=== PATIENT | male | born 1940 | race African-American/Black ===

== ENCOUNTER 2018-10-05 12:01 | Inpatient (IN) ==
[2018-10-05] MEDS ORDERED: ASPIRIN 325 MG TABLET PO STA (12:43)
[2018-10-05 13:44] LABS: Basophils % 0.4 % (0.0-0.8); Eosinophils # 0.1 10*3/uL (0.0-0.87); Hematocrit 29.2 VOL% (42.0-52.0); Hemoglobin 8.8 GM/DL (14.0-18.0); Immature Granulocytes % 0.5 %; Immature Granulocytes Absolute 0.05 #; Lymphocytes % 9.8 % (21.2-54.2); Mean Corpuscular HGB Conc 30.1 GM/DL (32-36); Mean Corpuscular Hemoglobin 27 PG (27-34); Mean Corpuscular Volume 89.6 FL (87-102); Mean Platelet Volume 9.6 FL (9.6-12.0); Monocytes # 0.8 10*3/uL (0.11-0.8); Neutrophils # 8.4 10*3/uL (1.4-7.4); Neutrophils % 80.3 % (38.7-73.9); Platelet Count 354 T/CUMM (130-400); Red Blood Count 3.26 MC/CUMM (3.8-5.5); Red Cell Distribution Width 15.9 % (9.3-17.3); White Blood Count 10.5 T/CUMM (4-12)
[2018-10-05 13:53] LABS: INR 1.5; Partial Thromboplastin Time 31.8 SECS (0-40)
[2018-10-05 14:08] LABS: Alanine Aminotransferase 11 U/L (16-61); Albumin 2.6 G/DL (3.4-5.0); Alkaline Phosphatase 69 U/L (45-117); Aspartate Amino Transferase 35 U/L (0-37); Bilirubin,Total < 0.39 MG/DL (0.2-1.0); Blood Urea Nitrogen 20 MG/DL (7-18); Calcium 9.2 MG/DL (8.5-10.1); Glucose 112 MG/DL (74-106); Osmolality,Calculated 280.5 MOS/KG (273-304); Potassium 4.4 MMOL/L (3.5-5.1); Sodium 139 MMOL/L (136-145); Total Protein 7.1 G/DL (6.4-8.3)
[2018-10-05] MEDS ORDERED: MELOXICAM 7.5 MG TABLET PO PRN (15:15)
[2018-10-05] MEDS ORDERED: LACTULOSE 20 GM/30 ML UDCUP PO PRN (16:14)
[2018-10-05] MEDS ORDERED: ONDANSETRON 4 MG/2 ML VIAL IV PRN (16:14)
[2018-10-05] MEDS ORDERED: MORPHINE 4 MG/1 ML VIAL IV PRN (16:14)
[2018-10-05] MEDS: SODIUM CHLORIDE 0.9% 1,000 ML IV SCH (18:51)
[2018-10-05] MEDS: MEROPENEM 1,000 MG in SODIUM CHLORIDE 0.9% 100 ML IV SCH (18:52)
[2018-10-05] MEDS: PANTOPRAZOLE 40 MG TABLET PO SCH (18:52)
[2018-10-05] MEDS: DOCUSATE SODIUM 100 MG CAPSULE PO SCH (21:26)
[2018-10-06] MEDS: MEROPENEM 1,000 MG in SODIUM CHLORIDE 0.9% 100 ML IV SCH ×2 (00:21→07:58)
[2018-10-06 07:37] LABS: Basophils % 0.4 % (0.0-0.8); Eosinophils # 0.1 10*3/uL (0.0-0.87); Eosinophils % 1.4 % (0.00-10.9); Hematocrit 27.8 VOL% (42.0-52.0); Hemoglobin 8.4 GM/DL (14.0-18.0); Immature Granulocytes % 0.5 %; Immature Granulocytes Absolute 0.05 #; Lymphocytes # 1.2 10*3/uL (1.4-4.0); Lymphocytes % 13.2 % (21.2-54.2); Mean Corpuscular HGB Conc 30.2 GM/DL (32-36); Mean Corpuscular Hemoglobin 27 PG (27-34); Mean Corpuscular Volume 89.4 FL (87-102); Mean Platelet Volume 9.3 FL (9.6-12.0); Monocytes # 0.9 10*3/uL (0.11-0.8); Monocytes % 10.2 % (1.7-12.7); Neutrophils # 6.8 10*3/uL (1.4-7.4); Neutrophils % 74.3 % (38.7-73.9); Platelet Count 299 T/CUMM (130-400); Red Blood Count 3.11 MC/CUMM (3.8-5.5); Red Cell Distribution Width 16.1 % (9.3-17.3); White Blood Count 9.1 T/CUMM (4-12)
[2018-10-06] MEDS: RIVAROXABAN 20 MG TABLET PO SCH (07:57)
[2018-10-06] MEDS: TAMSULOSIN 0.4 MG CAPSULE PO SCH (08:05)
[2018-10-06] MEDS: CITALOPRAM 20 MG TABLET PO SCH (08:05)
[2018-10-06] MEDS: DOCUSATE SODIUM 100 MG CAPSULE PO SCH ×2 (08:05→22:30)
[2018-10-06] MEDS: FERROUS SULFATE 325 MG TABLET PO SCH (08:05)
[2018-10-06] MEDS: BISACODYL 5 MG TABLET PO SCH (08:05)
[2018-10-06 08:11] LABS: Albumin 2.5 G/DL (3.4-5.0); Bilirubin,Total 0.5 MG/DL (0.2-1.0); Calcium 8.4 MG/DL (8.5-10.1); Total Protein 6.6 G/DL (6.4-8.3)
[2018-10-06 08:12] LABS: Osmolality,Calculated 283.3 MOS/KG (273-304); Potassium 4.1 MMOL/L (3.5-5.1)
[2018-10-06] MEDS ORDERED: LORATADINE 10 MG TABLET PO SCH (09:00)
[2018-10-06 10:11] LABS: Apearance,Urine Slightly Hazy (Clear); Bacteria,Urine Occasional /HPF (Few); Bilirubin,Urine Negative (Negative); Blood, Urine Negative (Negative); Glucose,Urine (UA) Negative (Negative); Ketones,Urine 5 mg/dL (Negative); Mucus,Urine Occasional /LPF (Occasional); Nitrite,Urine Negative (Negative); Protein,Urine Negative; RBC,Urine 1 /HPF (0-4); Squamous Epithelial Cell,Urine Occasional /HPF (0-10); Urine Color Yellow (Yellow); Urine Specific Gravity 1.026 (1.001-1.035); Urine Urobilinogen < 2.0 EU/DL (0.2-1.0); WBC,Urine 1 /HPF (0-6)
[2018-10-06] MEDS: SODIUM CHLORIDE 0.9% 1,000 ML IV SCH ×2 (10:22→22:11)
[2018-10-06] MEDS: amLODIPine 2.5 MG TABLET PO SCH (15:20)
[2018-10-06] MEDS: PANTOPRAZOLE 40 MG TABLET PO SCH (22:30)
[2018-10-07 06:29] LABS: Basophils % 0.5 % (0.0-0.8); Eosinophils # 0.2 10*3/uL (0.0-0.87); Eosinophils % 2.7 % (0.00-10.9); Hematocrit 28.2 VOL% (42.0-52.0); Hemoglobin 8.4 GM/DL (14.0-18.0); Immature Granulocytes % 0.4 %; Immature Granulocytes Absolute 0.03 #; Lymphocytes # 1.3 10*3/uL (1.4-4.0); Lymphocytes % 16.2 % (21.2-54.2); Mean Corpuscular HGB Conc 29.8 GM/DL (32-36); Mean Corpuscular Hemoglobin 27 PG (27-34); Mean Corpuscular Volume 90.4 FL (87-102); Monocytes # 0.8 10*3/uL (0.11-0.8); Monocytes % 9.6 % (1.7-12.7); Neutrophils # 5.5 10*3/uL (1.4-7.4); Neutrophils % 70.6 % (38.7-73.9); Platelet Count 305 T/CUMM (130-400); Red Blood Count 3.12 MC/CUMM (3.8-5.5); Red Cell Distribution Width 16.2 % (9.3-17.3); White Blood Count 7.8 T/CUMM (4-12)
[2018-10-07 06:48] LABS: Albumin 2.5 G/DL (3.4-5.0); Bilirubin,Total 0.6 MG/DL (0.2-1.0); Calcium 8.7 MG/DL (8.5-10.1); Osmolality,Calculated 282.1 MOS/KG (273-304); Potassium 4.1 MMOL/L (3.5-5.1); Total Protein 6.6 G/DL (6.4-8.3)
[2018-10-07] MEDS: TAMSULOSIN 0.4 MG CAPSULE PO SCH (08:54)
[2018-10-07] MEDS: CITALOPRAM 20 MG TABLET PO SCH (08:54)
[2018-10-07] MEDS: BISACODYL 5 MG TABLET PO SCH (08:54)
[2018-10-07] MEDS: amLODIPine 2.5 MG TABLET PO SCH (08:54)
[2018-10-07] MEDS: RIVAROXABAN 20 MG TABLET PO SCH (08:54)
[2018-10-07] MEDS: FERROUS SULFATE 325 MG TABLET PO SCH (08:54)
[2018-10-07] MEDS: DOCUSATE SODIUM 100 MG CAPSULE PO SCH (08:54)
[2018-10-07 11:59] VITALS: BP 146/92
[2018-10-07] MEDS: SODIUM CHLORIDE 0.9% 1,000 ML IV SCH (12:49)
== END 2018-10-07 14:15 | disposition home health service (06) | DRG 313 ==
LOC: EDSEX → EDUNIT# → N.ED 12:01 → N.EDINP 16:12 → SUATTDRO 16:12 → N.2E 17:04
PROVIDERS: ADMIT Internal Medicine; ATTEND Internal Medicine

== ENCOUNTER 2018-10-10 16:04 | Inpatient (IN) ==
[2018-10-10] MEDS ORDERED: PANTOPRAZOLE INJ 80 MG in SODIUM CHLORIDE 0.9% 100 ML IV STA (16:48)
[2018-10-10] MEDS ORDERED: SODIUM CHLORIDE 0.9% 1,000 ML IV STA (16:48)
[2018-10-10] MEDS ORDERED: PANTOPRAZOLE 40 MG VIAL IV ONE (16:58)
[2018-10-10 17:21] LABS: Basophils % 0.8 % (0.0-0.8); Eosinophils # 0.1 10*3/uL (0.0-0.87); Eosinophils % 1.4 % (0.00-10.9); Hematocrit 35.7 VOL% (42.0-52.0); Hemoglobin 10.9 GM/DL (14.0-18.0); Immature Granulocytes % 0.4 %; Immature Granulocytes Absolute 0.02 #; Lymphocytes # 0.8 10*3/uL (1.4-4.0); Lymphocytes % 15.6 % (21.2-54.2); Mean Corpuscular HGB Conc 30.5 GM/DL (32-36); Mean Corpuscular Hemoglobin 27 PG (27-34); Mean Corpuscular Volume 88.1 FL (87-102); Mean Platelet Volume 10.1 FL (9.6-12.0); Monocytes # 0.4 10*3/uL (0.11-0.8); Monocytes % 8.5 % (1.7-12.7); Neutrophils # 3.7 10*3/uL (1.4-7.4); Neutrophils % 73.3 % (38.7-73.9); Platelet Count 230 T/CUMM (130-400); Red Blood Count 4.05 MC/CUMM (3.8-5.5); Red Cell Distribution Width 15.6 % (9.3-17.3); White Blood Count 5.1 T/CUMM (4-12)
[2018-10-10 17:30] LABS: INR 1.2; PT Patient Result 12.7 SECS; Partial Thromboplastin Time 29.8 SECS (0-40)
[2018-10-10 17:57] LABS: Albumin 2.8 G/DL (3.4-5.0); Bilirubin,Total 0.6 MG/DL (0.2-1.0); Calcium 8.9 MG/DL (8.5-10.1); Osmolality,Calculated 272.8 MOS/KG (273-304); Potassium 3.7 MMOL/L (3.5-5.1); Total Protein 7.3 G/DL (6.4-8.3)
[2018-10-10] MEDS ORDERED: DOCUSATE SODIUM 100 MG CAPSULE PO SCH (21:00)
[2018-10-11] MEDS: ONDANSETRON 4 MG/2 ML VIAL IV PRN ×3 (00:22→16:06)
[2018-10-11] MEDS ORDERED: SODIUM CHLORIDE 0.9% 1,000 ML IV PRN ×2 (01:58→09:32)
[2018-10-11 05:44] LABS: Basophils % 0.5 % (0.0-0.8); Eosinophils # 0.2 10*3/uL (0.0-0.87); Hematocrit 27.1 VOL% (42.0-52.0); Hemoglobin 8.4 GM/DL (14.0-18.0); Immature Granulocytes % 0.4 %; Immature Granulocytes Absolute 0.02 #; Lymphocytes # 1.1 10*3/uL (1.4-4.0); Mean Corpuscular Hemoglobin 27 PG (27-34); Mean Corpuscular Volume 88.3 FL (87-102); Mean Platelet Volume 9.9 FL (9.6-12.0); Monocytes # 0.6 10*3/uL (0.11-0.8); Monocytes % 9.8 % (1.7-12.7); Neutrophils # 3.7 10*3/uL (1.4-7.4); Neutrophils % 66.3 % (38.7-73.9); Platelet Count 243 T/CUMM (130-400); Red Blood Count 3.07 MC/CUMM (3.8-5.5); Red Cell Distribution Width 15.9 % (9.3-17.3); White Blood Count 5.6 T/CUMM (4-12)
[2018-10-11] MEDS: PANTOPRAZOLE 40 MG VIAL IV SCH ×2 (08:15→22:30)
[2018-10-11] MEDS ORDERED: PANTOPRAZOLE 40 MG TABLET PO SCH (09:00)
[2018-10-12] MEDS ORDERED: BISACODYL 5 MG TABLET PO PRN (10:12)
[2018-10-12] MEDS ORDERED: DOCUSATE SODIUM 100 MG CAPSULE PO SCH (10:30)
[2018-10-12] MEDS: PANTOPRAZOLE 40 MG VIAL IV SCH (10:32)
[2018-10-12] MEDS ORDERED: TUBERCULIN SKIN TEST 0.1 ML SYRINGE INTRADERM ONE (10:49)
[2018-10-12] MEDS: POLYETHYLENE GLYCOL POWDER 17 GM PACK PO SCH (14:07)
[2018-10-12] MEDS: ONDANSETRON 4 MG/2 ML VIAL IV PRN (14:12)
[2018-10-12] MEDS: PANTOPRAZOLE 40 MG TABLET PO SCH (20:40)
[2018-10-12] MEDS ORDERED: POLYETHYLENE GLYCOL POWDER 17 GM PACK PO SCH (21:00)
[2018-10-12] MEDS: MORPHINE 4 MG/1 ML VIAL IV PRN (22:24)
[2018-10-13] MEDS: POLYETHYLENE GLYCOL POWDER 17 GM PACK PO SCH ×5 (02:29→20:42)
[2018-10-13 06:14] LABS: Calcium 8.6 MG/DL (8.5-10.1); Osmolality,Calculated 273.7 MOS/KG (273-304); Potassium 3.6 MMOL/L (3.5-5.1)
[2018-10-13 08:09] LABS: Basophils % 0.6 % (0.0-0.8); Eosinophils # 0.1 10*3/uL (0.0-0.87); Eosinophils % 2.9 % (0.00-10.9); Hematocrit 26.7 VOL% (42.0-52.0); Hemoglobin 8.6 GM/DL (14.0-18.0); Immature Granulocytes % 0.2 %; Immature Granulocytes Absolute 0.01 #; Lymphocytes # 1.2 10*3/uL (1.4-4.0); Lymphocytes % 23.9 % (21.2-54.2); Mean Corpuscular HGB Conc 32.2 GM/DL (32-36); Mean Corpuscular Hemoglobin 28 PG (27-34); Mean Corpuscular Volume 86.7 FL (87-102); Mean Platelet Volume 10.2 FL (9.6-12.0); Monocytes # 0.5 10*3/uL (0.11-0.8); Monocytes % 9.5 % (1.7-12.7); Neutrophils # 3.1 10*3/uL (1.4-7.4); Neutrophils % 62.9 % (38.7-73.9); Platelet Count 201 T/CUMM (130-400); Red Blood Count 3.08 MC/CUMM (3.8-5.5); Red Cell Distribution Width 15.5 % (9.3-17.3); White Blood Count 4.9 T/CUMM (4-12)
[2018-10-13] MEDS: PANTOPRAZOLE 40 MG TABLET PO SCH ×2 (08:19→18:32)
[2018-10-13] MEDS: ONDANSETRON 4 MG/2 ML VIAL IV PRN (15:14)
[2018-10-14 04:55] LABS: Basophils % 0.9 % (0.0-0.8); Eosinophils # 0.2 10*3/uL (0.0-0.87); Eosinophils % 4.5 % (0.00-10.9); Hematocrit 26.7 VOL% (42.0-52.0); Hemoglobin 8.2 GM/DL (14.0-18.0); Immature Granulocytes % 0.2 %; Immature Granulocytes Absolute 0.01 #; Lymphocytes # 1.2 10*3/uL (1.4-4.0); Lymphocytes % 25.1 % (21.2-54.2); Mean Corpuscular HGB Conc 30.7 GM/DL (32-36); Mean Corpuscular Hemoglobin 27 PG (27-34); Mean Corpuscular Volume 88.7 FL (87-102); Mean Platelet Volume 10.4 FL (9.6-12.0); Monocytes # 0.5 10*3/uL (0.11-0.8); Monocytes % 9.6 % (1.7-12.7); Neutrophils # 2.8 10*3/uL (1.4-7.4); Neutrophils % 59.7 % (38.7-73.9); Platelet Count 203 T/CUMM (130-400); Red Blood Count 3.01 MC/CUMM (3.8-5.5); Red Cell Distribution Width 15.6 % (9.3-17.3); White Blood Count 4.7 T/CUMM (4-12)
[2018-10-14] MEDS: ONDANSETRON 4 MG/2 ML VIAL IV PRN ×3 (06:26→23:36)
[2018-10-14] MEDS: PANTOPRAZOLE 40 MG TABLET PO SCH ×2 (10:23→18:44)
[2018-10-14] MEDS: POLYETHYLENE GLYCOL POWDER 17 GM PACK PO SCH ×3 (10:24→20:38)
[2018-10-14] MEDS: MORPHINE 4 MG/1 ML VIAL IV PRN (14:49)
[2018-10-15] MEDS: MORPHINE 4 MG/1 ML VIAL IV PRN ×2 (02:09→18:07)
[2018-10-15] MEDS: PANTOPRAZOLE 40 MG TABLET PO SCH ×2 (07:01→18:02)
[2018-10-15] MEDS: POLYETHYLENE GLYCOL POWDER 17 GM PACK PO SCH ×3 (08:10→20:25)
[2018-10-15] MEDS: ACETAMINOPHEN 325 MG TABLET PO PRN (17:08)
[2018-10-16] MEDS: ONDANSETRON 4 MG/2 ML VIAL IV PRN ×2 (01:28→12:58)
[2018-10-16] MEDS: MORPHINE 4 MG/1 ML VIAL IV PRN ×2 (03:57→20:45)
[2018-10-16] MEDS: PANTOPRAZOLE 40 MG TABLET PO SCH ×2 (09:07→18:32)
[2018-10-16] MEDS: POLYETHYLENE GLYCOL POWDER 17 GM PACK PO SCH ×3 (09:07→20:46)
[2018-10-16] MEDS ORDERED: DOCUSATE SODIUM 100 MG CAPSULE PO PRN (13:30)
[2018-10-16] MEDS ORDERED: ALBUTEROL 2.5 MG/3 ML NEB RESP TX PRN (13:30)
[2018-10-16] MEDS ORDERED: PANTOPRAZOLE 40 MG TABLET PO SCH (16:30)
[2018-10-16] MEDS: ERYTHROMYCIN 0.5% OPHT OINT 3.5 GM TUBE BOTH EYES SCH ×2 (17:34→20:45)
[2018-10-16] MEDS: predniSONE 5 MG TABLET PO SCH (20:45)
[2018-10-16] MEDS: TAMSULOSIN 0.4 MG CAPSULE PO SCH (20:45)
[2018-10-16] MEDS: ACETAMINOPHEN 325 MG TABLET PO PRN (23:52)
[2018-10-17] MEDS ORDERED: POLYETHYLENE GLYCOL POWDER 255 GM BOTTLE PO SCH (09:00)
[2018-10-17] MEDS: POLYETHYLENE GLYCOL POWDER 17 GM PACK PO SCH ×4 (10:37→20:23)
[2018-10-17] MEDS: predniSONE 5 MG TABLET PO SCH ×2 (10:38→20:24)
[2018-10-17] MEDS: CITALOPRAM 20 MG TABLET PO SCH (10:38)
[2018-10-17] MEDS: ERYTHROMYCIN 0.5% OPHT OINT 3.5 GM TUBE BOTH EYES SCH ×4 (10:38→20:24)
[2018-10-17] MEDS: FLUTICASONE 50 MCG NASAL SPRAY 16 GM BOTTLE BOTH NARES SCH (10:38)
[2018-10-17] MEDS: PANTOPRAZOLE 40 MG TABLET PO SCH ×2 (10:39→23:56)
[2018-10-17] MEDS: LORATADINE 10 MG TABLET PO SCH (10:39)
[2018-10-17] MEDS: amLODIPine 2.5 MG TABLET PO SCH (10:39)
[2018-10-17] MEDS: MORPHINE 4 MG/1 ML VIAL IV PRN ×2 (15:59→23:56)
[2018-10-17] MEDS ORDERED: HYDROmorphone 2 MG/1 ML VIAL IV ONE (17:39)
[2018-10-17] MEDS: ONDANSETRON 4 MG/2 ML VIAL IV PRN (20:24)
[2018-10-17] MEDS: TAMSULOSIN 0.4 MG CAPSULE PO SCH (20:24)
[2018-10-18] MEDS: FLUTICASONE 50 MCG NASAL SPRAY 16 GM BOTTLE BOTH NARES SCH (08:44)
[2018-10-18] MEDS: amLODIPine 2.5 MG TABLET PO SCH (08:44)
[2018-10-18] MEDS: CITALOPRAM 20 MG TABLET PO SCH (08:44)
[2018-10-18] MEDS: predniSONE 5 MG TABLET PO SCH ×2 (08:45→21:38)
[2018-10-18] MEDS: PANTOPRAZOLE 40 MG TABLET PO SCH ×2 (08:45→18:21)
[2018-10-18] MEDS: POLYETHYLENE GLYCOL POWDER 17 GM PACK PO SCH ×3 (08:45→21:38)
[2018-10-18] MEDS: ERYTHROMYCIN 0.5% OPHT OINT 3.5 GM TUBE BOTH EYES SCH ×4 (08:46→21:38)
[2018-10-18] MEDS: LORATADINE 10 MG TABLET PO SCH (08:46)
[2018-10-18] MEDS: MORPHINE 4 MG/1 ML VIAL IV PRN (09:03)
[2018-10-18] MEDS: ONDANSETRON 4 MG/2 ML VIAL IV PRN (09:03)
[2018-10-18] MEDS: TAMSULOSIN 0.4 MG CAPSULE PO SCH (21:38)
[2018-10-19] MEDS: ACETAMINOPHEN 325 MG TABLET PO PRN (00:54)
[2018-10-19] MEDS: PANTOPRAZOLE 40 MG TABLET PO SCH ×2 (06:36→18:03)
[2018-10-19] MEDS: ERYTHROMYCIN 0.5% OPHT OINT 3.5 GM TUBE BOTH EYES SCH ×4 (08:53→21:42)
[2018-10-19] MEDS: FLUTICASONE 50 MCG NASAL SPRAY 16 GM BOTTLE BOTH NARES SCH (08:53)
[2018-10-19] MEDS: CITALOPRAM 20 MG TABLET PO SCH (08:53)
[2018-10-19] MEDS: POLYETHYLENE GLYCOL POWDER 17 GM PACK PO SCH ×3 (08:53→21:42)
[2018-10-19] MEDS: predniSONE 5 MG TABLET PO SCH ×2 (08:53→21:40)
[2018-10-19] MEDS: amLODIPine 2.5 MG TABLET PO SCH (08:53)
[2018-10-19] MEDS: LORATADINE 10 MG TABLET PO SCH (08:53)
[2018-10-19] MEDS ORDERED: POLYETHYLENE GLYCOL POWDER 17 GM PACK PO SCH (09:00)
[2018-10-19] MEDS: MORPHINE 4 MG/1 ML VIAL IV PRN ×2 (12:05→21:39)
[2018-10-19] MEDS: TAMSULOSIN 0.4 MG CAPSULE PO SCH (21:40)
[2018-10-20] MEDS: PANTOPRAZOLE 40 MG TABLET PO SCH (06:31)
[2018-10-20] MEDS: amLODIPine 2.5 MG TABLET PO SCH (08:58)
[2018-10-20] MEDS: CITALOPRAM 20 MG TABLET PO SCH (08:58)
[2018-10-20] MEDS: POLYETHYLENE GLYCOL POWDER 17 GM PACK PO SCH (08:58)
[2018-10-20] MEDS: ERYTHROMYCIN 0.5% OPHT OINT 3.5 GM TUBE BOTH EYES SCH (08:58)
[2018-10-20] MEDS: LORATADINE 10 MG TABLET PO SCH (08:58)
[2018-10-20] MEDS: predniSONE 5 MG TABLET PO SCH (08:58)
[2018-10-20] MEDS: FLUTICASONE 50 MCG NASAL SPRAY 16 GM BOTTLE BOTH NARES SCH (09:00)
[2018-10-20 11:54] VITALS: BP 142/97
[2018-10-22] MEDS ORDERED: ERGOCALCIFEROL 50,000 UNIT CAPSULE PO SCH (09:00)
== END 2018-10-20 13:59 | DRG 378 ==
LOC: EDUNIT# → EDBD → N.ED 16:04 → N.EDINP 18:14 → SUATTDRO 18:14 → N.2E 19:42
PROVIDERS: ADMIT Hospitalist; ATTEND Internal Medicine

== ENCOUNTER 2018-12-11 01:13 | Inpatient (IN) ==
[2018-12-11] MEDS ORDERED: SODIUM CHLORIDE 0.9% 1,000 ML IV STA (02:17)
[2018-12-11 02:34] LABS: Basophils % 0.5 % (0.0-0.8); Eosinophils % 0.6 % (0.00-10.9); Hematocrit 29.5 VOL% (42.0-52.0); Hemoglobin 9.1 GM/DL (14.0-18.0); Immature Granulocytes % 1.1 %; Immature Granulocytes Absolute 0.07 #; Lymphocytes # 0.9 10*3/uL (1.4-4.0); Lymphocytes % 13.7 % (21.2-54.2); Mean Corpuscular HGB Conc 30.8 GM/DL (32-36); Mean Corpuscular Hemoglobin 28 PG (27-34); Mean Corpuscular Volume 90.8 FL (87-102); Mean Platelet Volume 10.6 FL (9.6-12.0); Monocytes # 0.6 10*3/uL (0.11-0.8); Monocytes % 8.8 % (1.7-12.7); Neutrophils # 4.8 10*3/uL (1.4-7.4); Neutrophils % 75.3 % (38.7-73.9); Platelet Count 173 T/CUMM (130-400); Red Blood Count 3.25 MC/CUMM (3.8-5.5); Red Cell Distribution Width 17.4 % (9.3-17.3); White Blood Count 6.3 T/CUMM (4-12)
[2018-12-11 02:53] LABS: Alanine Aminotransferase 11 U/L (16-61); Albumin 2.8 G/DL (3.4-5.0); Alkaline Phosphatase 61 U/L (45-117); Aspartate Amino Transferase 42 U/L (0-37); Bilirubin,Total < 0.39 MG/DL (0.2-1.0); Blood Urea Nitrogen 18 MG/DL (7-18); Glucose 110 MG/DL (74-106); Osmolality,Calculated 279.5 MOS/KG (273-304); Sodium 139 MMOL/L (136-145); Total Protein 6.7 G/DL (6.4-8.3)
[2018-12-11] MEDS ORDERED: PANTOPRAZOLE 40 MG VIAL IV ONE (02:58)
[2018-12-11] MEDS ORDERED: ONDANSETRON 4 MG/2 ML VIAL ONE (02:58)
[2018-12-11] MEDS ORDERED: PANTOPRAZOLE 40 MG VIAL IV STA (03:13)
[2018-12-11] MEDS ORDERED: ONDANSETRON 4 MG/2 ML VIAL IV STA (03:13)
[2018-12-11] MEDS ORDERED: NICOTINE 21 MG/24 HR PATCH TRANSDERM PRN (04:36)
[2018-12-11] MEDS ORDERED: ACETAMINOPHEN 325 MG TABLET PO PRN (04:36)
[2018-12-11] MEDS ORDERED: ONDANSETRON 4 MG/2 ML VIAL IV PRN (04:36)
[2018-12-11] MEDS ORDERED: MORPHINE 4 MG/1 ML VIAL IV PRN (04:36)
[2018-12-11] MEDS ORDERED: GLUCAGON 1 MG VIAL IM PRN (04:36)
[2018-12-11] MEDS ORDERED: ALBUTEROL 2.5 MG/3 ML NEB RESP TX PRN (04:36)
[2018-12-11] MEDS ORDERED: DEXTROSE 50% 25 GM/50 ML SYRINGE IV PRN (04:36)
[2018-12-11] MEDS: SODIUM CHLORIDE 0.9% 1,000 ML IV SCH ×2 (05:30→20:53)
[2018-12-11] MEDS: ALBUTEROL/IPRATROPIUM 3 ML NEB RESP TX SCH ×5 (07:24→23:54)
[2018-12-11] MEDS: INSULIN REGULAR 100 UNIT/ML SUBCUT SCH ×4 (08:36→20:52)
[2018-12-11 08:52] LABS: Basophils % 0.5 % (0.0-0.8); Eosinophils % 0.6 % (0.00-10.9); Hematocrit 30.7 VOL% (42.0-52.0); Hemoglobin 9.3 GM/DL (14.0-18.0); Immature Granulocytes % 0.5 %; Immature Granulocytes Absolute 0.03 #; Lymphocytes # 1.5 10*3/uL (1.4-4.0); Lymphocytes % 23.1 % (21.2-54.2); Mean Corpuscular HGB Conc 30.3 GM/DL (32-36); Mean Corpuscular Hemoglobin 28 PG (27-34); Mean Corpuscular Volume 92.7 FL (87-102); Mean Platelet Volume 10.4 FL (9.6-12.0); Monocytes # 0.6 10*3/uL (0.11-0.8); Monocytes % 9.4 % (1.7-12.7); Neutrophils # 4.1 10*3/uL (1.4-7.4); Neutrophils % 65.9 % (38.7-73.9); Platelet Count 158 T/CUMM (130-400); Red Blood Count 3.31 MC/CUMM (3.8-5.5); Red Cell Distribution Width 17.3 % (9.3-17.3); White Blood Count 6.3 T/CUMM (4-12)
[2018-12-11] MEDS: PANTOPRAZOLE 40 MG VIAL IV SCH ×2 (09:32→20:49)
[2018-12-11] MEDS: BISACODYL 5 MG TABLET PO SCH ×2 (13:17→20:50)
[2018-12-12] MEDS: BISACODYL 5 MG TABLET PO SCH (03:34)
[2018-12-12] MEDS: ALBUTEROL/IPRATROPIUM 3 ML NEB RESP TX SCH ×6 (04:10→23:10)
[2018-12-12 04:49] LABS: Basophils % 0.6 % (0.0-0.8); Eosinophils # 0.1 10*3/uL (0.0-0.87); Eosinophils % 0.8 % (0.00-10.9); Hematocrit 27.8 VOL% (42.0-52.0); Hemoglobin 8.4 GM/DL (14.0-18.0); Immature Granulocytes % 1.9 %; Immature Granulocytes Absolute 0.12 #; Lymphocytes % 16.6 % (21.2-54.2); Mean Corpuscular HGB Conc 30.2 GM/DL (32-36); Mean Corpuscular Hemoglobin 28 PG (27-34); Mean Corpuscular Volume 92.1 FL (87-102); Mean Platelet Volume 10.6 FL (9.6-12.0); Monocytes # 0.6 10*3/uL (0.11-0.8); Monocytes % 9.7 % (1.7-12.7); Neutrophils # 4.4 10*3/uL (1.4-7.4); Neutrophils % 70.4 % (38.7-73.9); Platelet Count 164 T/CUMM (130-400); Red Blood Count 3.02 MC/CUMM (3.8-5.5); Red Cell Distribution Width 17.6 % (9.3-17.3); White Blood Count 6.2 T/CUMM (4-12)
[2018-12-12 05:14] LABS: Calcium 7.6 MG/DL (8.5-10.1); Osmolality,Calculated 281.1 MOS/KG (273-304); Potassium 3.6 MMOL/L (3.5-5.1)
[2018-12-12 05:57] LABS: Eosinophils 1 % (0-10); Hypochromasia 1+; Lymphocytes 14 % (20-55); Microcytosis 1+; Ovalocytes Few; Segmented Neutrophils 77 % (50-85); Total Cells Counted 100
[2018-12-12 05:58] LABS: Platelet Estimate Adequate
[2018-12-12] MEDS: INSULIN REGULAR 100 UNIT/ML SUBCUT SCH ×4 (08:35→22:05)
[2018-12-12] MEDS: PANTOPRAZOLE 40 MG VIAL IV SCH ×2 (11:12→22:04)
[2018-12-12] MEDS: SODIUM CHLORIDE 0.9% 1,000 ML IV SCH ×3 (11:12→22:17)
[2018-12-12] MEDS ORDERED: POLYETHYLENE GLYCOL POWDER 255 GM BOTTLE PO ONE (18:00)
[2018-12-12] MEDS ORDERED: MAGNESIUM CITRATE 300 ML BOTTLE PO ONE (21:00)
[2018-12-13] MEDS: ALBUTEROL/IPRATROPIUM 3 ML NEB RESP TX SCH ×5 (02:50→19:58)
[2018-12-13 05:16] LABS: Basophils % 0.3 % (0.0-0.8); Eosinophils # 0.1 10*3/uL (0.0-0.87); Eosinophils % 0.9 % (0.00-10.9); Hematocrit 30.3 VOL% (42.0-52.0); Hemoglobin 9.2 GM/DL (14.0-18.0); Immature Granulocytes % 0.6 %; Immature Granulocytes Absolute 0.04 #; Lymphocytes # 0.9 10*3/uL (1.4-4.0); Lymphocytes % 12.6 % (21.2-54.2); Mean Corpuscular HGB Conc 30.4 GM/DL (32-36); Mean Corpuscular Hemoglobin 28 PG (27-34); Mean Corpuscular Volume 90.4 FL (87-102); Mean Platelet Volume 9.8 FL (9.6-12.0); Monocytes # 0.6 10*3/uL (0.11-0.8); Monocytes % 8.8 % (1.7-12.7); Neutrophils # 5.2 10*3/uL (1.4-7.4); Neutrophils % 76.8 % (38.7-73.9); Platelet Count 178 T/CUMM (130-400); Red Blood Count 3.35 MC/CUMM (3.8-5.5); Red Cell Distribution Width 17.7 % (9.3-17.3); White Blood Count 6.8 T/CUMM (4-12)
[2018-12-13] MEDS: PANTOPRAZOLE 40 MG VIAL IV SCH ×2 (08:06→21:09)
[2018-12-13] MEDS ORDERED: ONDANSETRON 4 MG/2 ML VIAL ONE (10:00)
[2018-12-13] MEDS ORDERED: PROPOFOL 200 MG/20 ML VIAL IV ONE (10:00)
[2018-12-13] MEDS ORDERED: LIDOCAINE 2% 5 ML VIAL ONE (10:00)
[2018-12-13] MEDS: INSULIN REGULAR 100 UNIT/ML SUBCUT SCH ×3 (10:19→21:11)
[2018-12-14 02:45] LABS: Basophils % 0.4 % (0.0-0.8); Eosinophils # 0.1 10*3/uL (0.0-0.87); Eosinophils % 1.1 % (0.00-10.9); Hematocrit 28.6 VOL% (42.0-52.0); Hemoglobin 8.7 GM/DL (14.0-18.0); Immature Granulocytes % 0.4 %; Immature Granulocytes Absolute 0.03 #; Lymphocytes % 11.6 % (21.2-54.2); Mean Corpuscular HGB Conc 30.4 GM/DL (32-36); Mean Corpuscular Hemoglobin 28 PG (27-34); Mean Corpuscular Volume 90.8 FL (87-102); Monocytes # 0.7 10*3/uL (0.11-0.8); Monocytes % 7.8 % (1.7-12.7); Neutrophils # 6.6 10*3/uL (1.4-7.4); Neutrophils % 78.7 % (38.7-73.9); Platelet Count 160 T/CUMM (130-400); Red Blood Count 3.15 MC/CUMM (3.8-5.5); White Blood Count 8.4 T/CUMM (4-12)
[2018-12-14] MEDS: SODIUM CHLORIDE 0.9% 1,000 ML IV SCH ×4 (03:08→14:38)
[2018-12-14] MEDS: ALBUTEROL/IPRATROPIUM 3 ML NEB RESP TX SCH ×7 (04:11→23:06)
[2018-12-14] MEDS: INSULIN REGULAR 100 UNIT/ML SUBCUT SCH ×4 (07:55→21:56)
[2018-12-14] MEDS: PANTOPRAZOLE 40 MG TABLET PO SCH ×2 (09:03→21:56)
[2018-12-14] MEDS ORDERED: SIMETHICONE CHEW 80 MG TABLET PO PRN (14:17)
[2018-12-14] MEDS ORDERED: ONDANSETRON 4 MG TABLET PO PRN (14:17)
[2018-12-14] MEDS ORDERED: DOCUSATE SODIUM 100 MG CAPSULE PO PRN (14:17)
[2018-12-14] MEDS ORDERED: ALBUTEROL 2.5 MG/3 ML NEB RESP TX PRN (15:00)
[2018-12-14] MEDS: FERROUS SULFATE 325 MG TABLET PO SCH (15:23)
[2018-12-14] MEDS: amLODIPine 2.5 MG TABLET PO SCH (15:23)
[2018-12-14] MEDS: LORATADINE 10 MG TABLET PO SCH (15:24)
[2018-12-14] MEDS: ERYTHROMYCIN 0.5% OPHT OINT 3.5 GM TUBE BOTH EYES SCH ×2 (17:38→21:56)
[2018-12-14] MEDS ORDERED: TAMSULOSIN 0.4 MG CAPSULE PO SCH (21:00)
[2018-12-14] MEDS: predniSONE 5 MG TABLET PO SCH (21:56)
[2018-12-14] MEDS: POLYETHYLENE GLYCOL POWDER 17 GM PACK PO SCH (21:56)
[2018-12-15] MEDS: SODIUM CHLORIDE 0.9% 1,000 ML IV SCH ×2 (03:35→03:36)
[2018-12-15] MEDS: ALBUTEROL/IPRATROPIUM 3 ML NEB RESP TX SCH ×3 (03:53→10:57)
[2018-12-15 07:32] VITALS: BP 140/94
[2018-12-15] MEDS ORDERED: LINACLOTIDE 145 MCG CAPSULE PO SCH (08:00)
[2018-12-15] MEDS: INSULIN REGULAR 100 UNIT/ML SUBCUT SCH (08:23)
[2018-12-15] MEDS: FERROUS SULFATE 325 MG TABLET PO SCH (08:56)
[2018-12-15] MEDS: LORATADINE 10 MG TABLET PO SCH (08:57)
[2018-12-15] MEDS: predniSONE 5 MG TABLET PO SCH (08:57)
[2018-12-15] MEDS: PANTOPRAZOLE 40 MG TABLET PO SCH (08:57)
[2018-12-15] MEDS: amLODIPine 2.5 MG TABLET PO SCH (08:57)
[2018-12-15] MEDS ORDERED: FLUTICASONE 50 MCG NASAL SPRAY 16 GM BOTTLE BOTH NARES SCH (09:00)
[2018-12-15] MEDS ORDERED: CITALOPRAM 20 MG TABLET PO SCH (09:00)
[2018-12-15] MEDS: ERYTHROMYCIN 0.5% OPHT OINT 3.5 GM TUBE BOTH EYES SCH (09:08)
[2018-12-15] MEDS: POLYETHYLENE GLYCOL POWDER 17 GM PACK PO SCH (09:11)
[2018-12-17] MEDS ORDERED: ERGOCALCIFEROL 50,000 UNIT CAPSULE PO SCH (09:00)
== END 2018-12-15 12:22 | DRG 375 ==
LOC: EDUNIT# → EDBD → N.ED 01:13 → N.EDINP 01:13 → SUATTDRO 04:36 → N.2E 05:11
PROVIDERS: ADMIT Internal Medicine; ATTEND Internal Medicine
PROC: COLONBX (2018-12-13 13:20)

== ENCOUNTER 2019-03-22 17:40 | Inpatient (IN) ==
[2019-03-22] MEDS ORDERED: LOPERAMIDE 2 MG CAPSULE PO STA (18:04)
[2019-03-22] MEDS ORDERED: ONDANSETRON 4 MG/2 ML VIAL IV STA (18:04)
[2019-03-22] MEDS ORDERED: METOCLOPRAMIDE 10 MG/2 ML VIAL IV STA (18:04)
[2019-03-22] MEDS ORDERED: DICYCLOMINE 20 MG/2 ML AMP IM ONE (18:04)
[2019-03-22] MEDS ORDERED: SODIUM CHLORIDE 0.9% 1,000 ML IV STA ×2 (18:04→20:53)
[2019-03-22] MEDS ORDERED: metroNIDAZOLE INJ 500 MG in PREMIX 1 EACH IV STA (18:08)
[2019-03-22 18:32] LABS: Hematocrit 31.7 VOL% (42.0-52.0); Hemoglobin 10.3 GM/DL (14.0-18.0); Immature Granulocytes % 0.6 %; Immature Granulocytes Absolute 0.04 #; Lymphocytes # 0.3 10*3/uL (1.4-4.0); Lymphocytes % 4.8 % (21.2-54.2); Mean Corpuscular HGB Conc 32.5 GM/DL (32-36); Mean Corpuscular Volume 88.5 FL (87-102); Mean Platelet Volume 10.4 FL (9.6-12.0); Monocytes % 5.9 % (1.7-12.7); Neutrophils % 88.7 % (38.7-73.9); Platelet Count 178 T/CUMM (130-400); Red Blood Count 3.58 MC/CUMM (3.8-5.5); Red Cell Distribution Width 16.9 % (9.3-17.3); White Blood Count 6.6 T/CUMM (4-12)
[2019-03-22 18:51] LABS: Albumin 2.8 G/DL (3.4-5.0); Bilirubin,Total 1.9 MG/DL (0.2-1.0); Calcium 9.3 MG/DL (8.5-10.1); Osmolality,Calculated 284.4 MOS/KG (273-304); Total Protein 6.8 G/DL (6.4-8.3)
[2019-03-22 18:53] LABS: Troponin I < 0.015 NG/ML (0.00-0.045)
[2019-03-22 19:02] LABS: Anisocytosis Slight; Elliptocytes Few; Lymphocytes 4 % (20-55); Microcytosis Slight; Platelet Estimate Normal; Segmented Neutrophils 95 % (50-85); Total Cells Counted 100
[2019-03-22 20:31] LABS: Apearance,Urine CLEAR (Clear); Bacteria,Urine Occasional /HPF (Few); Blood, Urine Negative (Negative); Glucose,Urine (UA) Negative (Negative); Hyaline Casts,Urine 4 /LPF (0-3); Ketones,Urine Negative (Negative); Mucus,Urine Many /LPF (Occasional); Nitrite,Urine Negative (Negative); Protein,Urine 30 MG/DL; RBC,Urine 5 /HPF (0-4); Squamous Epithelial Cell,Urine Occasional /HPF (0-10); Urine Color Amber (Yellow); Urine Specific Gravity 1.026 (1.001-1.035); WBC,Urine 8 /HPF (0-6)
[2019-03-22 20:32] LABS: Bilirubin,Urine Small mg/dL (Negative)
[2019-03-22] MEDS ORDERED: POLYETHYLENE GLYCOL POWDER 17 GM PACK PO PRN (23:18)
[2019-03-22] MEDS ORDERED: GLUCAGON 1 MG VIAL IM PRN (23:18)
[2019-03-22] MEDS ORDERED: DEXTROSE 50% 25 GM/50 ML VIAL IV PRN (23:18)
[2019-03-22] MEDS: SODIUM CHLORIDE 0.9% 1,000 ML IV SCH (23:44)
[2019-03-22] MEDS: INSULIN REGULAR 100 UNIT/ML SUBCUT SCH (23:45)
[2019-03-23] MEDS: predniSONE 5 MG TABLET PO SCH ×3 (00:12→22:02)
[2019-03-23] MEDS: TAMSULOSIN 0.4 MG CAPSULE PO SCH ×2 (00:12→22:02)
[2019-03-23] MEDS: LEVOFLOXACIN INJ 500 MG in PREMIX 1 EACH IV SCH ×2 (00:12→22:01)
[2019-03-23] MEDS: ONDANSETRON 4 MG/2 ML VIAL IV PRN (00:17)
[2019-03-23] MEDS: ACETAMINOPHEN 325 MG TABLET PO PRN (01:08)
[2019-03-23 06:38] LABS: Basophils % 0.2 % (0.0-0.8); Eosinophils % 0.2 % (0.00-10.9); Hematocrit 30.2 VOL% (42.0-52.0); Hemoglobin 9.9 GM/DL (14.0-18.0); Immature Granulocytes % 0.7 %; Immature Granulocytes Absolute 0.04 #; Lymphocytes # 0.4 10*3/uL (1.4-4.0); Lymphocytes % 6.4 % (21.2-54.2); Mean Corpuscular HGB Conc 32.8 GM/DL (32-36); Mean Corpuscular Volume 87.3 FL (87-102); Mean Platelet Volume 10.4 FL (9.6-12.0); Monocytes % 8.1 % (1.7-12.7); Neutrophils % 84.4 % (38.7-73.9); Platelet Count 157 T/CUMM (130-400); Red Blood Count 3.46 MC/CUMM (3.8-5.5); Red Cell Distribution Width 16.8 % (9.3-17.3); White Blood Count 5.8 T/CUMM (4-12)
[2019-03-23 07:04] LABS: Albumin 2.7 G/DL (3.4-5.0); Bilirubin,Total 3.3 MG/DL (0.2-1.0); Osmolality,Calculated 278.5 MOS/KG (273-304); Total Protein 6.7 G/DL (6.4-8.3)
[2019-03-23 07:27] LABS: Albumin 2.8 G/DL (3.4-5.0); Bilirubin,Direct 2.44 MG/DL (0.0-0.20); Bilirubin,Indirect 0.6 MG/DL (0.0-1.0); Total Protein 6.7 G/DL (6.4-8.3)
[2019-03-23] MEDS ORDERED: MORPHINE 4 MG/1 ML VIAL IV PRN (09:04)
[2019-03-23] MEDS: FERROUS GLUCONATE 324 MG TABLET PO SCH ×2 (09:49→22:02)
[2019-03-23] MEDS: MORPHINE ER 15 MG TABLET PO SCH (09:49)
[2019-03-23] MEDS: CITALOPRAM 20 MG TABLET PO SCH (09:49)
[2019-03-23] MEDS: PANTOPRAZOLE 40 MG TABLET PO SCH (09:49)
[2019-03-23] MEDS: amLODIPine 2.5 MG TABLET PO SCH (09:50)
[2019-03-23] MEDS: FLUTICASONE 50 MCG NASAL SPRAY 16 GM BOTTLE BOTH NARES SCH (09:50)
[2019-03-23] MEDS: INSULIN REGULAR 100 UNIT/ML SUBCUT SCH ×4 (12:03→22:00)
[2019-03-23] MEDS: SODIUM CHLORIDE 0.9% 1,000 ML IV SCH (14:19)
[2019-03-23] MEDS: ALBUTEROL/IPRATROPIUM 3 ML NEB RESP TX PRN ×2 (14:35→19:32)
[2019-03-23] MEDS ORDERED: HYDROmorphone 2 MG/1 ML VIAL IV PRN (19:36)
[2019-03-24] MEDS: SODIUM CHLORIDE 0.9% 1,000 ML IV SCH ×3 (00:14→23:24)
[2019-03-24 05:14] LABS: Basophils % 0.2 % (0.0-0.8); Eosinophils % 0.2 % (0.00-10.9); Hemoglobin 9.6 GM/DL (14.0-18.0); Immature Granulocytes % 0.6 %; Immature Granulocytes Absolute 0.03 #; Lymphocytes # 0.3 10*3/uL (1.4-4.0); Lymphocytes % 6.7 % (21.2-54.2); Mean Corpuscular Volume 89.8 FL (87-102); Mean Platelet Volume 10.7 FL (9.6-12.0); Monocytes % 8.5 % (1.7-12.7); Neutrophils % 83.8 % (38.7-73.9); Platelet Count 153 T/CUMM (130-400); Red Blood Count 3.34 MC/CUMM (3.8-5.5); Red Cell Distribution Width 17.4 % (9.3-17.3)
[2019-03-24 05:32] LABS: Calcium 8.8 MG/DL (8.5-10.1); Osmolality,Calculated 281.1 MOS/KG (273-304)
[2019-03-24 05:37] LABS: Albumin 2.4 G/DL (3.4-5.0); Bilirubin,Direct 3.42 MG/DL (0.0-0.20); Bilirubin,Indirect 0.8 MG/DL (0.0-1.0); Bilirubin,Total 4.2 MG/DL (0.2-1.0); Total Protein 6.2 G/DL (6.4-8.3)
[2019-03-24] MEDS ORDERED: MIDAZOLAM 2 MG/2 ML VIAL ONE (08:08)
[2019-03-24] MEDS ORDERED: fentaNYL 100 MCG/2 ML VIAL ONE (08:08)
[2019-03-24] MEDS ORDERED: INDOMETHACIN SUPP 50 MG SUPP RECTAL ONE (08:38)
[2019-03-24] MEDS ORDERED: ONDANSETRON 4 MG/2 ML VIAL ONE (10:00)
[2019-03-24] MEDS ORDERED: SUCCINYLCHOLINE 200 MG/10 ML VIAL ONE (10:00)
[2019-03-24] MEDS ORDERED: PROPOFOL 200 MG/20 ML VIAL IV ONE (10:00)
[2019-03-24] MEDS ORDERED: KETOROLAC 30 MG/1 ML VIAL ONE (10:00)
[2019-03-24] MEDS ORDERED: ROCURONIUM 100 MG/10 ML VIAL IV ONE (10:00)
[2019-03-24] MEDS ORDERED: LIDOCAINE 2% 5 ML VIAL ONE (10:00)
[2019-03-24] MEDS: ALBUTEROL/IPRATROPIUM 3 ML NEB RESP TX PRN (10:17)
[2019-03-24] MEDS ORDERED: SEVOFLURANE 1 UNIT/15 MINUTE INH ONE (10:21)
[2019-03-24] MEDS: INSULIN REGULAR 100 UNIT/ML SUBCUT SCH ×2 (11:18→17:50)
[2019-03-24] MEDS: CITALOPRAM 20 MG TABLET PO SCH (11:22)
[2019-03-24] MEDS: predniSONE 5 MG TABLET PO SCH ×2 (11:22→21:31)
[2019-03-24] MEDS: amLODIPine 2.5 MG TABLET PO SCH (11:22)
[2019-03-24] MEDS: FERROUS GLUCONATE 324 MG TABLET PO SCH ×2 (11:22→21:31)
[2019-03-24] MEDS: FLUTICASONE 50 MCG NASAL SPRAY 16 GM BOTTLE BOTH NARES SCH (11:22)
[2019-03-24] MEDS: guaiFENesin/DM ER 600-30 MG TABLET PO PRN ×2 (11:22→21:31)
[2019-03-24] MEDS: PANTOPRAZOLE 40 MG TABLET PO SCH (11:22)
[2019-03-24] MEDS: MORPHINE ER 15 MG TABLET PO SCH (11:22)
[2019-03-24] MEDS: LACTATED RINGERS 1,000 ML IV SCH (11:23)
[2019-03-24] MEDS: TAMSULOSIN 0.4 MG CAPSULE PO SCH (21:31)
[2019-03-24] MEDS: LEVOFLOXACIN INJ 500 MG in PREMIX 1 EACH IV SCH (21:31)
[2019-03-25] MEDS: ONDANSETRON 4 MG/2 ML VIAL IV PRN ×3 (00:18→16:49)
[2019-03-25] MEDS: INSULIN REGULAR 100 UNIT/ML SUBCUT SCH ×5 (00:42→21:29)
[2019-03-25] MEDS: ACETAMINOPHEN 325 MG TABLET PO PRN (03:42)
[2019-03-25 05:15] LABS: Eosinophils % 0.4 % (0.00-10.9); Hematocrit 29.5 VOL% (42.0-52.0); Hemoglobin 9.5 GM/DL (14.0-18.0); Immature Granulocytes % 1.4 %; Immature Granulocytes Absolute 0.07 #; Lymphocytes # 0.3 10*3/uL (1.4-4.0); Lymphocytes % 5.6 % (21.2-54.2); Mean Corpuscular HGB Conc 32.2 GM/DL (32-36); Mean Corpuscular Volume 89.7 FL (87-102); Mean Platelet Volume 10.6 FL (9.6-12.0); Monocytes % 8.9 % (1.7-12.7); Neutrophils % 83.7 % (38.7-73.9); Platelet Count 148 T/CUMM (130-400); Red Blood Count 3.29 MC/CUMM (3.8-5.5); Red Cell Distribution Width 17.5 % (9.3-17.3); White Blood Count 5.2 T/CUMM (4-12)
[2019-03-25 05:45] LABS: Calcium 8.5 MG/DL (8.5-10.1); Osmolality,Calculated 283.1 MOS/KG (273-304)
[2019-03-25] MEDS: SODIUM CHLORIDE 0.9% 1,000 ML IV SCH ×2 (06:16→10:47)
[2019-03-25 07:30] LABS: Albumin 2.3 G/DL (3.4-5.0); Bilirubin,Direct 0.76 MG/DL (0.0-0.20); Bilirubin,Indirect 0.5 MG/DL (0.0-1.0); Bilirubin,Total 1.3 MG/DL (0.2-1.0)
[2019-03-25] MEDS ORDERED: ERGOCALCIFEROL 50,000 UNIT CAPSULE PO SCH (09:00)
[2019-03-25] MEDS ORDERED: traMADol 50 MG TABLET PO PRN (09:18)
[2019-03-25] MEDS ORDERED: MAGNESIUM HYDROXIDE SUSP 30 ML UDCUP PO PRN (09:18)
[2019-03-25] MEDS ORDERED: diphenhydrAMINE CAP 25 MG CAPSULE PO PRN (09:18)
[2019-03-25] MEDS ORDERED: ALPRAZolam 0.25 MG TABLET PO PRN (09:18)
[2019-03-25] MEDS ORDERED: MYLANTA/LIDO VISC 2:1 300 ML BOTTLE SWISH/SPIT PRN (09:18)
[2019-03-25] MEDS ORDERED: ONDANSETRON 4 MG/2 ML VIAL IV PRN (09:18)
[2019-03-25] MEDS ORDERED: LACTULOSE 20 GM/30 ML UDCUP PO PRN (09:18)
[2019-03-25] MEDS ORDERED: TEMAZEPAM 7.5 MG CAPSULE PO PRN (09:18)
[2019-03-25] MEDS ORDERED: PROMETHAZINE INJ 25 MG in SODIUM CHLORIDE 0.9% 50 ML IV PRN (09:18)
[2019-03-25] MEDS ORDERED: LOPERAMIDE 2 MG CAPSULE PO PRN ×2 (09:18)
[2019-03-25] MEDS ORDERED: MYLANTA/LIDO VISC 2:1 300 ML BOTTLE SWISH/SWAL PRN (09:18)
[2019-03-25] MEDS ORDERED: ALUMINUM/MAGNES/SIMETH MAX STR 30 ML UDCUP PO PRN (09:18)
[2019-03-25] MEDS: amLODIPine 2.5 MG TABLET PO SCH (10:04)
[2019-03-25] MEDS: LACTATED RINGERS 1,000 ML IV SCH (10:04)
[2019-03-25] MEDS: predniSONE 5 MG TABLET PO SCH ×2 (10:04→21:30)
[2019-03-25] MEDS: CITALOPRAM 20 MG TABLET PO SCH (10:04)
[2019-03-25] MEDS: MORPHINE ER 15 MG TABLET PO SCH (10:04)
[2019-03-25] MEDS: FERROUS GLUCONATE 324 MG TABLET PO SCH ×2 (10:04→21:30)
[2019-03-25] MEDS: PANTOPRAZOLE 40 MG TABLET PO SCH (10:04)
[2019-03-25] MEDS: FLUTICASONE 50 MCG NASAL SPRAY 16 GM BOTTLE BOTH NARES SCH (10:05)
[2019-03-25] MEDS: guaiFENesin 200 MG/10 ML UDCUP PO PRN (16:46)
[2019-03-25] MEDS: TAMSULOSIN 0.4 MG CAPSULE PO SCH (21:30)
[2019-03-25] MEDS: LEVOFLOXACIN INJ 500 MG in PREMIX 1 EACH IV SCH (22:20)
[2019-03-26 07:02] LABS: Basophils % 0.2 % (0.0-0.8); Eosinophils % 0.3 % (0.00-10.9); Hematocrit 33.3 VOL% (42.0-52.0); Hemoglobin 10.7 GM/DL (14.0-18.0); Immature Granulocytes % 1.4 %; Immature Granulocytes Absolute 0.08 #; Lymphocytes # 0.3 10*3/uL (1.4-4.0); Lymphocytes % 5.7 % (21.2-54.2); Mean Corpuscular HGB Conc 32.1 GM/DL (32-36); Mean Corpuscular Volume 90.2 FL (87-102); Mean Platelet Volume 11.3 FL (9.6-12.0); Monocytes % 8.5 % (1.7-12.7); Neutrophils % 83.9 % (38.7-73.9); Platelet Count 188 T/CUMM (130-400); Red Blood Count 3.69 MC/CUMM (3.8-5.5); Red Cell Distribution Width 17.5 % (9.3-17.3); White Blood Count 5.8 T/CUMM (4-12)
[2019-03-26 07:17] LABS: Calcium 9.2 MG/DL (8.5-10.1); Osmolality,Calculated 282.1 MOS/KG (273-304)
[2019-03-26] MEDS: predniSONE 5 MG TABLET PO SCH ×2 (08:03→21:32)
[2019-03-26] MEDS: PANTOPRAZOLE 40 MG TABLET PO SCH (08:03)
[2019-03-26] MEDS: FERROUS GLUCONATE 324 MG TABLET PO SCH ×2 (08:03→21:32)
[2019-03-26] MEDS: MORPHINE ER 15 MG TABLET PO SCH (08:03)
[2019-03-26] MEDS: CITALOPRAM 20 MG TABLET PO SCH (08:03)
[2019-03-26] MEDS: amLODIPine 2.5 MG TABLET PO SCH (08:03)
[2019-03-26] MEDS: INSULIN REGULAR 100 UNIT/ML SUBCUT SCH ×4 (08:05→21:32)
[2019-03-26] MEDS: FLUTICASONE 50 MCG NASAL SPRAY 16 GM BOTTLE BOTH NARES SCH (08:05)
[2019-03-26 10:37] LABS: Albumin 2.8 G/DL (3.4-5.0); Bilirubin,Direct 0.68 MG/DL (0.0-0.20); Bilirubin,Indirect 0.3 MG/DL (0.0-1.0); Total Protein 6.9 G/DL (6.4-8.3)
[2019-03-26] MEDS: guaiFENesin 200 MG/10 ML UDCUP PO PRN (16:19)
[2019-03-26] MEDS: TAMSULOSIN 0.4 MG CAPSULE PO SCH (21:32)
[2019-03-26] MEDS: LEVOFLOXACIN INJ 500 MG in PREMIX 1 EACH IV SCH (21:34)
[2019-03-27 05:21] LABS: Calcium 9.3 MG/DL (8.5-10.1)
[2019-03-27] MEDS: INSULIN REGULAR 100 UNIT/ML SUBCUT SCH ×4 (07:35→21:26)
[2019-03-27] MEDS: amLODIPine 2.5 MG TABLET PO SCH (09:26)
[2019-03-27] MEDS: FLUTICASONE 50 MCG NASAL SPRAY 16 GM BOTTLE BOTH NARES SCH (09:27)
[2019-03-27] MEDS: PANTOPRAZOLE 40 MG TABLET PO SCH (09:27)
[2019-03-27] MEDS: FERROUS GLUCONATE 324 MG TABLET PO SCH ×2 (09:27→21:25)
[2019-03-27] MEDS: predniSONE 5 MG TABLET PO SCH ×2 (09:27→21:25)
[2019-03-27] MEDS: MORPHINE ER 15 MG TABLET PO SCH (09:27)
[2019-03-27] MEDS: CITALOPRAM 20 MG TABLET PO SCH (09:27)
[2019-03-27 09:50] LABS: Eosinophils % 0.5 % (0.00-10.9); Hematocrit 32.2 VOL% (42.0-52.0); Immature Granulocytes % 0.9 %; Immature Granulocytes Absolute 0.05 #; Lymphocytes # 0.3 10*3/uL (1.4-4.0); Lymphocytes % 4.5 % (21.2-54.2); Mean Corpuscular HGB Conc 31.1 GM/DL (32-36); Mean Corpuscular Volume 92.3 FL (87-102); Mean Platelet Volume 11.2 FL (9.6-12.0); Monocytes % 8.5 % (1.7-12.7); Neutrophils % 85.6 % (38.7-73.9); Platelet Count 198 T/CUMM (130-400); Red Blood Count 3.49 MC/CUMM (3.8-5.5); Red Cell Distribution Width 17.5 % (9.3-17.3); White Blood Count 5.5 T/CUMM (4-12)
[2019-03-27 10:14] LABS: Band Neutrophils 7 % (0-10); Lymphocytes 3 % (20-55); Platelet Estimate Normal; Segmented Neutrophils 82 % (50-85); Total Cells Counted 100
[2019-03-27 10:15] LABS: Anisocytosis 1+; Macrocytosis 1+; Poikilocytosis Slight; Smudge Cells Few
[2019-03-27] MEDS: TAMSULOSIN 0.4 MG CAPSULE PO SCH (21:25)
[2019-03-27] MEDS: LEVOFLOXACIN INJ 500 MG in PREMIX 1 EACH IV SCH (21:30)
[2019-03-28 05:35] LABS: Eosinophils % 0.7 % (0.00-10.9); Hematocrit 30.3 VOL% (42.0-52.0); Hemoglobin 9.6 GM/DL (14.0-18.0); Immature Granulocytes % 0.9 %; Immature Granulocytes Absolute 0.04 #; Lymphocytes # 0.2 10*3/uL (1.4-4.0); Lymphocytes % 4.7 % (21.2-54.2); Mean Corpuscular HGB Conc 31.7 GM/DL (32-36); Mean Corpuscular Volume 90.2 FL (87-102); Mean Platelet Volume 10.9 FL (9.6-12.0); Monocytes % 8.5 % (1.7-12.7); Neutrophils % 85.2 % (38.7-73.9); Platelet Count 193 T/CUMM (130-400); Red Blood Count 3.36 MC/CUMM (3.8-5.5); White Blood Count 4.5 T/CUMM (4-12)
[2019-03-28 06:02] LABS: Band Neutrophils 1 % (0-10); Hypochromasia 1+; Lymphocytes 6 % (20-55); Macrocytosis Slight; Platelet Estimate Adequate; Segmented Neutrophils 88 % (50-85); Total Cells Counted 100
[2019-03-28 06:04] LABS: Calcium 9.3 MG/DL (8.5-10.1)
[2019-03-28 07:23] LABS: Albumin 2.5 G/DL (3.4-5.0); Bilirubin,Direct 0.43 MG/DL (0.0-0.20); Bilirubin,Indirect 0.5 MG/DL (0.0-1.0); Bilirubin,Total 0.9 MG/DL (0.2-1.0); Total Protein 6.2 G/DL (6.4-8.3)
[2019-03-28] MEDS: MORPHINE ER 15 MG TABLET PO SCH (08:22)
[2019-03-28] MEDS: CITALOPRAM 20 MG TABLET PO SCH (08:22)
[2019-03-28] MEDS: amLODIPine 2.5 MG TABLET PO SCH (08:22)
[2019-03-28] MEDS: FERROUS GLUCONATE 324 MG TABLET PO SCH ×2 (08:22→21:05)
[2019-03-28] MEDS: PANTOPRAZOLE 40 MG TABLET PO SCH (08:23)
[2019-03-28] MEDS: INSULIN REGULAR 100 UNIT/ML SUBCUT SCH ×4 (08:23→21:06)
[2019-03-28] MEDS: predniSONE 5 MG TABLET PO SCH ×2 (08:23→21:06)
[2019-03-28] MEDS: METOCLOPRAMIDE 10 MG/10 ML UDCUP PO SCH ×4 (08:23→21:06)
[2019-03-28] MEDS: FLUTICASONE 50 MCG NASAL SPRAY 16 GM BOTTLE BOTH NARES SCH (08:24)
[2019-03-28] MEDS: TAMSULOSIN 0.4 MG CAPSULE PO SCH (21:06)
[2019-03-28] MEDS: LEVOFLOXACIN INJ 500 MG in PREMIX 1 EACH IV SCH (21:36)
[2019-03-29 04:44] LABS: Eosinophils % 0.6 % (0.00-10.9); Hematocrit 29.2 VOL% (42.0-52.0); Hemoglobin 9.4 GM/DL (14.0-18.0); Immature Granulocytes % 1.1 %; Immature Granulocytes Absolute 0.05 #; Lymphocytes # 0.3 10*3/uL (1.4-4.0); Lymphocytes % 5.7 % (21.2-54.2); Mean Corpuscular HGB Conc 32.2 GM/DL (32-36); Mean Corpuscular Volume 88.8 FL (87-102); Mean Platelet Volume 10.4 FL (9.6-12.0); Monocytes % 9.7 % (1.7-12.7); Neutrophils % 82.9 % (38.7-73.9); Platelet Count 191 T/CUMM (130-400); Red Blood Count 3.29 MC/CUMM (3.8-5.5); Red Cell Distribution Width 17.2 % (9.3-17.3); White Blood Count 4.7 T/CUMM (4-12)
[2019-03-29 05:20] LABS: Calcium 9.3 MG/DL (8.5-10.1); Osmolality,Calculated 282.3 MOS/KG (273-304)
[2019-03-29] MEDS: MORPHINE ER 15 MG TABLET PO SCH (09:42)
[2019-03-29] MEDS: amLODIPine 2.5 MG TABLET PO SCH (09:42)
[2019-03-29] MEDS: PANTOPRAZOLE 40 MG TABLET PO SCH (09:43)
[2019-03-29] MEDS: CITALOPRAM 20 MG TABLET PO SCH (09:43)
[2019-03-29] MEDS: FERROUS GLUCONATE 324 MG TABLET PO SCH (09:43)
[2019-03-29] MEDS: predniSONE 5 MG TABLET PO SCH (09:44)
[2019-03-29] MEDS: METOCLOPRAMIDE 10 MG/10 ML UDCUP PO SCH ×2 (09:44→12:42)
[2019-03-29] MEDS: FLUTICASONE 50 MCG NASAL SPRAY 16 GM BOTTLE BOTH NARES SCH (09:45)
[2019-03-29] MEDS: INSULIN REGULAR 100 UNIT/ML SUBCUT SCH ×2 (09:46→12:13)
[2019-03-29 12:15] VITALS: BP 110/83
== END 2019-03-29 14:10 | DRG 438 ==
LOC: EDBD → EDUNIT# → N.EDINP 17:40 → N.ED 17:40 → N.2E 22:36 → N.4E 22:48
PROVIDERS: ADMIT Internal Medicine; ATTEND Internal Medicine